=== PATIENT | male | born 1995 ===

== ENCOUNTER 2025-08-28 07:00 | Day surgery (SDC) | payer OTHER ==
[2025-08-25 11:07] VITALS: BP 111/67
[~2025-08-28] VITALS: Ht 180.3 cm; Wt 69.9 kg
[2025-08-28] MEDS ORDERED: METRONIDAZOLE/SODIUM CHLORIDE 500 MG/100 ML PIGGYBACK IV ONE (07:47)
[2025-08-28] MEDS ORDERED: CEFTRIAXONE SODIUM 2,000 MG VIAL ONE (07:47)
[2025-08-28] MEDS ORDERED: BUPIVACAINE HCL/MPF 0.5% 30ML VIAL ONE (10:35)
[2025-08-28] MEDS ORDERED: DIBUCAINE 30 GM TUBE ONE (10:35)
[2025-08-28] MEDS ORDERED: HEMOSTATIC MATRIX 1 KIT KIT TOP ONE (10:35)
[2025-08-28] MEDS ORDERED: LIDOCAINE HCL 1%/EPINEPHRINE 20ML VIAL IJ ONE (10:35)
[2025-08-28] MEDS ORDERED: POVIDONE-IODINE 118 ML BOTT TOP ONE (10:35)
[2025-08-28] MEDS ORDERED: PERCOCET 5-3251 EACH PO (11:41)
[2025-08-28] MEDS ORDERED: RECTICARE30 GM TOP (11:42)
[2025-08-28] MEDS ORDERED: TAMSULOSIN HCL 0.4 MG CAP PO ONE (16:00)
== END 2025-08-28 16:20 | disposition home or self-care (01) ==
LOC: CIR.AMB 07:00
PROVIDERS: ATTEND Surgery
DX: K64.2 Third degree hemorrhoids (principal); K60.1 Chronic anal fissure